=== PATIENT | male | born 1940 | race Asian ===

== ENCOUNTER 2024-01-29 19:20 | Inpatient (IN) | payer MEDICARE ==
[~2024-01-29] VITALS: Ht 167.6 cm; Wt 67.1 kg
[2024-01-29 20:26] LABS: BASOPHILS % (AUTO) 0.2 % (0.0-2.0); EOSINOPHILS % (AUTO) 0.1 % (0.0-6.0); HEMATOCRIT 40 % (39-51); HEMOGLOBIN 13.1 g/dL (13.5-17.5); LYMPHOCYTES # (AUTO) 0.5 K/uL (0.8-4.8); LYMPHOCYTES % (AUTO) 6.2 % (20.0-44.0); MEAN CORPUSCULAR HEMOGLOBIN 31 PG (26.0-33.0); MEAN CORPUSCULAR HGB CONC 33 g/dl (31.0-36.0); MEAN CORPUSCULAR VOLUME 93 fL (80-96); MONOCYTES # (AUTO) 0.4 K/uL (0.1-1.30); NEUTROPHILS # (AUTO) 6.4 K/uL (1.8-8.9); NEUTROPHILS % (AUTO) 87.5 % (43.0-81.0); PLATELET COUNT (AUTO) 170 K/uL (150-450); RED BLOOD CELL COUNT(AUTO) 4.31 MIL/uL (4.5-6.0); RED CELL DISTRIBUTION WIDTH 14.1 % (11.5-15.0); WHITE BLOOD COUNT (AUTO) 7.3 K/uL (4.3-11.0)
[2024-01-29 20:30] LABS: APPEARANCE,URINE CLEAR (CLEAR); BILIRUBIN,URINE NEGATIVE (NEGATIVE); BLOOD, URINE NEGATIVE Ery/uL (NEGATIVE); COLOR,URINE YELLOW (YELLOW); KETONES,URINE NEGATIVE (NEGATIVE); LEUKOCYTE ESTERASE ,URINE NEGATIVE (NEGATIVE); NITRITE, URINE NEGATIVE (NEGATIVE); PROTEIN,URINE NEGATIVE (NEGATIVE); UGLUCOSE NEGATIVE (NEGATIVE); UROBILINOGEN,URINE 0.2 EU/dL (0.2)
[2024-01-29 20:40] LABS: ALANINE AMINOTRANSFERASE 15 U/L (12-78); ALBUMIN 3.7 g/dL (3.4-5.0); ALCOHOL, BLOOD < 3 mg/dL (0-10); ALKALINE PHOSPHATASE 77 U/L (46-116); ASPARTATE AMINOTRANSFERASE 17 U/L (15-37); BILIRUBIN,DIRECT 0.2 mg/dL (0.0-0.2); BILIRUBIN,TOTAL 0.8 mg/dL (0.2-1.0); CARBON DIOXIDE 21 mmol/L (21-32); CHLORIDE 102 mmol/L (98-107); CREATININE 1.9 mg/dL (0.6-1.3); GLUCOSE 202 mg/dL (74-106); POTASSIUM 3.9 mmol/L (3.5-5.1); SODIUM SERUM 137 mmol/L (136-145); TOTAL PROTEIN, SERUM 7.9 g/dL (6.4-8.2); UREA NITROGEN, BLOOD 29 mg/dL (7-18)
[2024-01-29 20:41] LABS: ACETAMINOPHEN 0 ug/ml (10-30)
[2024-01-29 20:56] LABS: AMPHETAMINE, URINE NEGATIVE (NEGATIVE); BARBITURATE, URINE NEGATIVE (NEGATIVE); BENZODIAZEPINE, URINE NEGATIVE (NEGATIVE); CANNABINOID, URINE NEGATIVE (NEGATIVE); COCCAINE, URINE NEGATIVE (NEGATIVE); OPIATE, URINE NEGATIVE (NEGATIVE); PHENCYCLIDINE SCREEN,URINE NEGATIVE (NEGATIVE)
[2024-01-30] MEDS ORDERED: MAG HYDROX/AL HYDROX/SIMETH 30 ML UDC PO PRN (01:00)
[2024-01-30] MEDS ORDERED: MAGNESIUM HYDROXIDE 30 ML UDC PO PRN (01:00)
[2024-01-30 03:12] VITALS: BP 159/99; TEMP 97.9; O2SAT 98
[2024-01-30] MEDS: BLOOD SUGAR DIAGNOSTIC 1 EACH STRIP IN ONE (03:48)
[2024-01-30 08:00] VITALS: BP 135/81; TEMP 97.6; O2SAT 96
[2024-01-30] MEDS ORDERED: LORA-259 PO (14:19)
[2024-01-30] MEDS ORDERED: DIVA-76 PO (14:19)
[2024-01-30] MEDS ORDERED: INSU100I4 SQ (14:19)
[2024-01-30] MEDS ORDERED: TRAZ-257 PO (14:34)
[2024-01-30] MEDS ORDERED: QUET25TA PO (14:34)
[2024-01-30] MEDS ORDERED: DICL50TA9 PO (14:34)
[2024-01-30] MEDS ORDERED: CETI10TA14 PO (14:34)
[2024-01-30 16:00] VITALS: BP 144/90; TEMP 97.7; O2SAT 95
[2024-01-30] MEDS: QUETIAPINE FUMARATE 25 MG TABLET PO SCH ×2 (16:31→21:23)
[2024-01-30 20:41] VITALS: BP 141/97; TEMP 97.9; O2SAT 96
[2024-01-30] MEDS: DIVALPROEX SODIUM 125 MG CAP.SPRINK PO SCH (21:24)
[2024-01-31] MEDS: TEMAZEPAM 7.5 MG CAPSULE PO PRN (02:38)
[2024-01-31] MEDS: LORAZEPAM 0.5 MG TABLET PO PRN (06:39)
[2024-01-31 08:00] VITALS: BP 131/71; TEMP 97.8; O2SAT 98
[2024-01-31 16:00] VITALS: BP 134/94; TEMP 98.3; O2SAT 97
[2024-01-31] MEDS ORDERED: MAGNESIUM HYDROXIDE 30 ML UDC PO PRN (17:30)
[2024-01-31] MEDS ORDERED: TEMAZEPAM 7.5 MG CAPSULE PO PRN (17:30)
[2024-01-31] MEDS ORDERED: ACETAMINOPHEN 325 MG TABLET PO PRN (17:30)
[2024-01-31] MEDS ORDERED: LORAZEPAM 0.5 MG TABLET PO PRN (17:30)
[2024-01-31] MEDS ORDERED: BLOOD SUGAR DIAGNOSTIC 1 EACH STRIP IN ONE (17:30)
[2024-01-31] MEDS ORDERED: MAG HYDROX/AL HYDROX/SIMETH 30 ML UDC PO PRN (17:30)
[2024-01-31 20:00] VITALS: BP 130/90; TEMP 97.8; O2SAT 96
[2024-02-01 08:00] VITALS: BP 150/81; TEMP 98; O2SAT 98
[2024-02-01 16:00] VITALS: BP 135/90; TEMP 98; O2SAT 100
[2024-02-01 20:00] VITALS: BP 135/84; TEMP 98.3; O2SAT 100
[2024-02-02 08:58] VITALS: BP 139/90; TEMP 97.5; O2SAT 98
[2024-02-02 15:50] VITALS: BP 104/81; TEMP 97.6; O2SAT 98
[2024-02-02 20:35] VITALS: BP 116/75; TEMP 98; O2SAT 98
[2024-02-03 08:00] VITALS: BP 159/98; TEMP 97.9; O2SAT 96
[2024-02-03 16:00] VITALS: BP 138/90; TEMP 98.1; O2SAT 95
[2024-02-03] MEDS: AMLODIPINE BESYLATE 5 MG TABLET PO SCH (17:00)
[2024-02-03 20:46] VITALS: BP 127/81; TEMP 98.1; O2SAT 100
[2024-02-03] MEDS: ACETAMINOPHEN 325 MG TABLET PO PRN (22:50)
[2024-02-04 08:00] VITALS: BP 175/84; TEMP 98; O2SAT 97
[2024-02-04] MEDS: CLONIDINE HCL 0.1MG/24H PTWK 1 EA PATCH TD SCH (13:47)
[2024-02-04] MEDS: DIVALPROEX SODIUM 125 MG CAP.SPRINK PO SCH (14:45)
[2024-02-04 16:00] VITALS: BP 145/96; TEMP 98.7; O2SAT 96
[2024-02-04] MEDS: OLANZAPINE 2.5 MG TABLET PO SCH (21:04)
[2024-02-04 21:11] VITALS: BP 153/93; TEMP 98.1; O2SAT 96
[2024-02-04] MEDS: LORAZEPAM 0.5 MG TABLET PO PRN (22:28)
[2024-02-05] MEDS: OLANZAPINE 10 MG VIAL IM ONE (17:45)
[2024-02-05 19:58] VITALS: BP 149/79; TEMP 97.9; O2SAT 95
[2024-02-06 08:00] VITALS: BP 118/74; TEMP 98.1; O2SAT 98
[2024-02-06 16:00] VITALS: BP 140/95; TEMP 98.7; O2SAT 98
[2024-02-06 20:00] VITALS: BP 127/89; TEMP 98.2; O2SAT 98
[2024-02-07 08:00] VITALS: BP 120/77; TEMP 97.7; O2SAT 97
[2024-02-07 16:00] VITALS: BP 138/86; TEMP 98.1; O2SAT 100
[2024-02-07 20:00] VITALS: BP 121/81; TEMP 97.6; O2SAT 98
[2024-02-08 08:00] VITALS: BP 130/79; TEMP 98.6; O2SAT 96
[2024-02-08 16:00] VITALS: BP 140/90; TEMP 97.5; O2SAT 100
[2024-02-08 20:00] VITALS: BP 135/89; TEMP 98; O2SAT 100
[2024-02-09 08:00] VITALS: BP 112/73; TEMP 98; O2SAT 95
[2024-02-09 16:00] VITALS: BP 109/77; TEMP 98.9; O2SAT 98
[2024-02-09 20:49] VITALS: BP 136/81; TEMP 98.4; O2SAT 97
[2024-02-10 08:00] VITALS: BP 136/78; TEMP 98.8; O2SAT 97
[2024-02-10 16:04] VITALS: BP 112/73; TEMP 98.6; O2SAT 96
[2024-02-10 20:45] VITALS: BP 110/101; TEMP 97.8; O2SAT 100
[2024-02-11 08:00] VITALS: BP 124/68; TEMP 98.6; O2SAT 99
[2024-02-11 16:00] VITALS: BP 115/84; TEMP 97.7; O2SAT 99
[2024-02-11 20:16] VITALS: BP 141/83; TEMP 98; O2SAT 96
[2024-02-12 08:00] VITALS: BP 122/68; TEMP 97.6; O2SAT 98
[2024-02-12 20:00] VITALS: BP 142/84; TEMP 98.2; O2SAT 97
[2024-02-13 08:00] VITALS: BP 148/83; TEMP 97.7; O2SAT 95
[2024-02-13 16:00] VITALS: BP 138/84; TEMP 98.7; O2SAT 97
[2024-02-13 20:00] VITALS: BP 118/81; TEMP 98.3; O2SAT 100
[2024-02-14 08:00] VITALS: BP 140/82; TEMP 98.6; O2SAT 96
[2024-02-14 08:44] VITALS: BP 140/82
== END 2024-02-14 13:30 | DRG 885 ==
LOC: ER 19:28 → GPS 01-30 00:10
PROVIDERS: ADMIT Psychiatry & Neurology Psychosomatic Medicine; ATTEND Nurse Practitioner Acute Care
DX: F29 Unspecified psychosis not due to a substance or known physiological condition (principal); N17.9 Acute kidney failure, unspecified; N18.9 Chronic kidney disease, unspecified; D64.9 Anemia, unspecified; E88.9 Metabolic disorder, unspecified; F31.9 Bipolar disorder, unspecified; E11.22 Type 2 diabetes mellitus with diabetic chronic kidney disease; Z20.822 Contact with and (suspected) exposure to COVID-19; Z73.6 Limitation of activities due to disability; F39 Unspecified mood [affective] disorder; I12.9 Hypertensive chronic kidney disease with stage 1 through stage 4 chronic kidney disease, or unspecified chronic kidney disease; Z91.199 Patient's noncompliance with other medical treatment and regimen due to unspecified reason; Z79.4 Long term (current) use of insulin; M89.8X9 Other specified disorders of bone, unspecified site; R41.9 Unspecified symptoms and signs involving cognitive functions and awareness
CPT/HCPCS: 36415; 70486-TC; 76770-TC; 80048-TC; 80076-TC; 82962-TC; 85025-TC; 87081-TC; 97110-TC; 97116-TC; G0480; J3490

== ENCOUNTER 2024-10-24 12:33 | Inpatient (IN) | payer MEDICARE, OTHER ==
[~2024-10-24] VITALS: Ht 167.6 cm; Wt 68.0 kg
[~2024-10-24 12:33] MED LIST: CETI10TA14 PO; DICL50TA9 PO; DIVA-76 PO; INSU100I4 SQ; LORA-259 PO; QUET25TA PO; TRAZ-257 PO
[2024-10-24 13:35] LABS: BASOPHILS % (AUTO) 0.6 % (0.0-2.0); EOSINOPHILS # (AUTO) 0.4 K/uL (0.0-0.7); EOSINOPHILS % (AUTO) 4.9 % (0.0-6.0); HEMATOCRIT 40 % (39-51); HEMOGLOBIN 13.3 g/dL (13.5-17.5); LYMPHOCYTES # (AUTO) 1.2 K/uL (0.8-4.8); LYMPHOCYTES % (AUTO) 15.9 % (20.0-44.0); MEAN CORPUSCULAR HEMOGLOBIN 31 PG (26.0-33.0); MEAN CORPUSCULAR HGB CONC 34 g/dl (31.0-36.0); MEAN CORPUSCULAR VOLUME 92 fL (80-96); MONOCYTES # (AUTO) 0.6 K/uL (0.1-1.30); MONOCYTES % (AUTO) 7.4 % (2.0-12.0); NEUTROPHILS # (AUTO) 5.5 K/uL (1.8-8.9); NEUTROPHILS % (AUTO) 71.2 % (43.0-81.0); PLATELET COUNT (AUTO) 202 K/uL (150-450); RED BLOOD CELL COUNT(AUTO) 4.31 MIL/uL (4.5-6.0); RED CELL DISTRIBUTION WIDTH 13.9 % (11.5-15.0); WHITE BLOOD COUNT (AUTO) 7.7 K/uL (4.3-11.0)
[2024-10-24 13:48] LABS: INR 0.93 (0.91-1.10); PARTIAL THROMBOPLASTIN TIME 27.6 SEC (24.3-34.3); PROTHROMBIN TIME 9.6 SECS (9.2-11.1)
[2024-10-24 13:54] LABS: SERUM AMMONIA 5 umol/L (11-32)
[2024-10-24] MEDS: IV NS 0.9% 1,000 ML BAG IV ONE ×2 (13:54→16:31)
[2024-10-24 13:59] LABS: APPEARANCE,URINE CLEAR (CLEAR); BILIRUBIN,URINE Negative (NEGATIVE); BLOOD, URINE Small Ery/uL (NEGATIVE); COLOR,URINE YELLOW (YELLOW); KETONES,URINE Negative (NEGATIVE); LEUKOCYTE ESTERASE ,URINE Negative (NEGATIVE); PH,URINE 5.5 (5.0-8.0); PROTEIN,URINE 30 mg/dl (NEGATIVE); UGLUCOSE Negative (NEGATIVE); UROBILINOGEN,URINE 0.2 EU/dL (0.2)
[2024-10-24 14:00] LABS: NITRITE, URINE NEGATIVE (NEGATIVE)
[2024-10-24 14:08] LABS: ADD URINE CULTURE NO; BACTERIA,URINE Rare /HPF (None Seen); SQUAMOUS EPITHELIAL CELL,UR Moderate /HPF (None Seen)
[2024-10-24 14:18] LABS: CALCIUM, SERUM 8.6 mg/dL (8.5-10.1); CARBON DIOXIDE 24 mmol/L (21-32); CHLORIDE 115 mmol/L (98-107); CREATININE 1.2 mg/dL (0.6-1.3); GLUCOSE 99 mg/dL (74-106); POTASSIUM 5.4 mmol/L (3.5-5.1); SODIUM SERUM 154 mmol/L (136-145); UREA NITROGEN, BLOOD 25 mg/dL (7-18)
[2024-10-24 14:24] LABS: ALANINE AMINOTRANSFERASE 12 U/L (12-78); ALBUMIN 3.6 g/dL (3.4-5.0); ALKALINE PHOSPHATASE 81 U/L (46-116); ASPARTATE AMINOTRANSFERASE 18 U/L (15-37); BILIRUBIN,DIRECT 0.1 mg/dL (0.0-0.2); BILIRUBIN,TOTAL 0.5 mg/dL (0.2-1.0); LIPASE 25 U/L (16-77); TOTAL PROTEIN, SERUM 7.4 g/dL (6.4-8.2)
[2024-10-24] MEDS ORDERED: MELO7.5T12 PO (14:34)
[2024-10-24] MEDS ORDERED: OXYC5TAB3 PO (14:34)
[2024-10-24] MEDS ORDERED: ATOR10TA PO (14:34)
[2024-10-24] MEDS ORDERED: POLY17PO4 PO (14:34)
[2024-10-24] MEDS ORDERED: MAGN400O6 PO (14:34)
[2024-10-24] MEDS ORDERED: ACET-868 PO (14:34)
[2024-10-24] MEDS ORDERED: CYAN500T9 PO (14:34)
[2024-10-24] MEDS ORDERED: CALC500T13 PO (14:34)
[2024-10-24] MEDS ORDERED: AMIN30LI66 PO (14:34)
[2024-10-24] MEDS ORDERED: BISA10SU11 RC (14:34)
[2024-10-24] MEDS ORDERED: CRAN400C PO (14:34)
[2024-10-24] MEDS ORDERED: POLY15DR31 EACHEYE (14:34)
[2024-10-24] MEDS ORDERED: LATA2.5D2 EACHEYE (14:34)
[2024-10-24] MEDS ORDERED: MELA1TAB47 PO (14:34)
[2024-10-24] MEDS ORDERED: METF-440 PO (14:34)
[2024-10-24] MEDS ORDERED: DOCU100T2 PO (14:34)
[2024-10-24] MEDS ORDERED: NA P133E RC (14:34)
[2024-10-24] MEDS ORDERED: MAGNESIUM HYDROXIDE 30 ML UDC PO PRN (15:00)
[2024-10-24] MEDS ORDERED: ONDANSETRON HCL/PF 4 MG/2 ML VIAL IVP PRN (15:00)
[2024-10-24] MEDS ORDERED: Z GUARD REMEDY 4 OZ OINT TP PRN (15:00)
[2024-10-24] MEDS ORDERED: ACETAMINOPHEN 325 MG TABLET PO PRN (15:00)
[2024-10-24] MEDS ORDERED: MAG HYDROX/AL HYDROX/SIMETH 30 ML UDC PO PRN (15:00)
[2024-10-24 16:00] VITALS: BP 125/95; TEMP 98.7; O2SAT 98
[2024-10-24] MEDS: SODIUM ZIRCONIUM CYCLOSILICATE 10 GM POWD.PACK PO STA (16:31)
[2024-10-24] MEDS: ENOXAPARIN SODIUM 40 MG/0.4 ML DISP.SYRIN SQ SCH (16:32)
[2024-10-24 20:00] VITALS: BP 129/91; TEMP 98.2; O2SAT 96
[2024-10-25 04:00] VITALS: BP_SYST 116; BP_SYST 143; BP_DIAS 78; BP_DIAS 80; TEMP 97.7; TEMP 98.1; O2SAT 96; O2SAT 99
[2024-10-25] MEDS: IV D5/0.45 NACL 1,000 ML IV PRN (06:00)
[2024-10-25] MEDS: PANTOPRAZOLE 40 MG TABLET.DR PO SCH (08:30)
[2024-10-25 20:00] VITALS: BP 135/85; TEMP 98.1; O2SAT 95
[2024-10-25] MEDS ORDERED: DEXTROSE 50%-WATER 50 ML DISP.SYRIN IV PRN (23:30)
[2024-10-26 04:00] VITALS: BP 152/70; TEMP 98.4; O2SAT 97
[2024-10-26] MEDS: BLOOD SUGAR DIAGNOSTIC 1 EACH STRIP IN SCH (06:25)
[2024-10-26 08:00] VITALS: BP 138/78; TEMP 98.2; O2SAT 97
[2024-10-26] MEDS: INSULIN REGULAR, HUMAN 100 UNIT/ML 3 ML VIAL SQ PRN (13:07)
[2024-10-26 14:41] LABS: BASOPHILS % (AUTO) 0.8 % (0.0-2.0); EOSINOPHILS # (AUTO) 0.4 K/uL (0.0-0.7); EOSINOPHILS % (AUTO) 7.4 % (0.0-6.0); HEMATOCRIT 39 % (39-51); LYMPHOCYTES # (AUTO) 1.2 K/uL (0.8-4.8); MEAN CORPUSCULAR HEMOGLOBIN 31 PG (26.0-33.0); MEAN CORPUSCULAR HGB CONC 34 g/dl (31.0-36.0); MEAN CORPUSCULAR VOLUME 92 fL (80-96); MONOCYTES # (AUTO) 0.5 K/uL (0.1-1.30); MONOCYTES % (AUTO) 9.2 % (2.0-12.0); NEUTROPHILS # (AUTO) 3.1 K/uL (1.8-8.9); NEUTROPHILS % (AUTO) 59.6 % (43.0-81.0); PLATELET COUNT (AUTO) 204 K/uL (150-450); RED BLOOD CELL COUNT(AUTO) 4.23 MIL/uL (4.5-6.0); RED CELL DISTRIBUTION WIDTH 13.7 % (11.5-15.0); WHITE BLOOD COUNT (AUTO) 5.3 K/uL (4.3-11.0)
[2024-10-26 15:03] LABS: CALCIUM, SERUM 8.6 mg/dL (8.5-10.1); CREATININE 1.2 mg/dL (0.6-1.3); MAGNESIUM 1.7 mg/dL (1.8-2.4)
[2024-10-26 16:00] VITALS: BP 131/80; TEMP 97.9; O2SAT 98
[2024-10-26] MEDS: diphenhydrAMINE HCL/ZINC ACET CREAM 28.3 GM TUBE TP PRN (17:59)
[2024-10-26 20:00] VITALS: BP 136/75; TEMP 97.9; O2SAT 98
[2024-10-27 04:00] VITALS: BP 135/82; TEMP 97.8; O2SAT 99
[2024-10-27 07:12] LABS: BASOPHILS % (AUTO) 0.7 % (0.0-2.0); EOSINOPHILS # (AUTO) 0.5 K/uL (0.0-0.7); EOSINOPHILS % (AUTO) 7.1 % (0.0-6.0); HEMATOCRIT 38 % (39-51); HEMOGLOBIN 12.7 g/dL (13.5-17.5); LYMPHOCYTES # (AUTO) 1.1 K/uL (0.8-4.8); LYMPHOCYTES % (AUTO) 17.2 % (20.0-44.0); MEAN CORPUSCULAR HEMOGLOBIN 31 PG (26.0-33.0); MEAN CORPUSCULAR HGB CONC 34 g/dl (31.0-36.0); MEAN CORPUSCULAR VOLUME 92 fL (80-96); MONOCYTES # (AUTO) 0.6 K/uL (0.1-1.30); NEUTROPHILS # (AUTO) 4.2 K/uL (1.8-8.9); PLATELET COUNT (AUTO) 206 K/uL (150-450); RED BLOOD CELL COUNT(AUTO) 4.15 MIL/uL (4.5-6.0); WHITE BLOOD COUNT (AUTO) 6.4 K/uL (4.3-11.0)
[2024-10-27 07:18] LABS: CALCIUM, SERUM 8.8 mg/dL (8.5-10.1); CREATININE 1.1 mg/dL (0.6-1.3); MAGNESIUM 1.8 mg/dL (1.8-2.4); PHOSPHORUS 3.3 mg/dL (2.5-4.9)
[2024-10-27 08:00] VITALS: BP 130/79; TEMP 98.1; O2SAT 95
[2024-10-27 13:40] LABS: THYROID STIMULATING HORMONE 3.6 uIU/mL (0.358-3.74)
[2024-10-27 16:17] VITALS: BP 129/76; TEMP 97.9; O2SAT 95
[2024-10-29 09:08] LABS: FOLIC ACID 4.6 ng/mL (>3.0)
== END 2024-10-27 16:23 | DRG 641 ==
LOC: ER 12:35 → MEDSG1 14:54
DX: E86.0 Dehydration (principal); N17.9 Acute kidney failure, unspecified; E87.0 Hyperosmolality and hypernatremia; E87.5 Hyperkalemia; R62.7 Adult failure to thrive; Z79.4 Long term (current) use of insulin; F31.9 Bipolar disorder, unspecified; E78.5 Hyperlipidemia, unspecified; M15.9 Polyosteoarthritis, unspecified; Z87.81 Personal history of (healed) traumatic fracture; F41.9 Anxiety disorder, unspecified; E11.9 Type 2 diabetes mellitus without complications; I10 Essential (primary) hypertension; I70.0 Atherosclerosis of aorta; Z74.01 Bed confinement status
CPT/HCPCS: 36415; 71045-TC; 80048-TC; 80076-TC; 81001; 82140-TC; 82607-TC; 82962-TC; 83690-TC; 83735-TC; 83921; 84100-TC; 84425; 84443-TC; 84484-TC; 85025-TC; 85730-TC; 87081-TC; 87086-TC; 92526; 92611-TC; 97110-TC; 97530-TC; 97535-TC; A4223; G0378; J1650; J1815; J3490; J7030